=== PATIENT | male | born 1955 | race Caucasian/White ===

== ENCOUNTER 2016-11-29 11:33 | Day surgery (SDC) | payer OTHER ==
[~2016-11-29] VITALS: Ht 180.3 cm; Wt 152.6 kg
--- NOTE | 2016-11-29 06:55 | PCM.HPANE ---
Patient Data Surgeon Admitting Provider: Attending Provider:Du Nation MD Primary Care Physician:Sharmin Quinn PA-C Other Provider:Omaira Richmond Anesthesia Reason for Visit Right Neck Mass Ht/WT & BMI Body Mass Index Allergies Coded Allergies: No Known Allergies (Verified , 06/19/07) Past Anesthesia History Anesthesia History: Denies:: Abnormal Airway, Anesthesia Reactions, Difficult Intubation, Fam Anesthesia Reaction Diabetes History Hx Diabetes?: Yes (last Hgb A1C 5.4) Glycemic Control: Oral Medication MRSA MRSA: No Medications Hypertension Medication: Yes Home Meds Incl Beta Triston: Yes Reported Medications Albuterol HFA (Proair HFA)8.5 Gm Hfa.aer.ad2 Puffs INHALATION prn #8 11/29/16 Gabapentin 300 Mg Qfdsacv480 Mg PO BID Ref 0 04/14/16 [lipozine] No Conflict Check15 Mg PO DAILY 01/15/16 Tamsulosin (Flomax)0.4 Mg Capsule0.4 Mg PO DAILY Ref 0 01/15/16 Pramipexole Dihydrochloride (Mirapex)1 Mg Tablet2 Mg PO HS 01/15/16 Potassium Chloride 10 Meq Capsule.er10 Meq PO DIRECTED 30 Days Ref 0 take one capsule three times a week with FOOD 01/15/16 Multivitamin (Multivitamins)1 Each Capsule1 Each PO DAILY 01/15/16 Metoprolol Tartrate 100 Mg Ncikif638 Mg PO BID 30 Days Ref 0 01/15/16 Loratadine (Claritin)10 Mg Usmdbwr83 Mg PO DAILY Ref 0 01/15/16 Lisinopril 5 Mg Tablet5 Mg PO BID #60 TABLET Ref 0 01/15/16 Levothyroxine 75 Mcg Ezxjot35 Mcg PO DAILY Ref 0 01/15/16 Hydrocodone-Acetaminophen 5-325 mg 1 Each Tablet1 Tablet PO Q4H PRN For Pain Ref 0 01/15/16 Furosemide 40 Mg Ypyhci72 Mg PO DAILY 01/15/16 Ferrous Sulfate 325 Mg Npagru657 Mg PO DAILY 30 Days Ref 0 01/15/16 Duloxetine 30 Mg Capsule.dr30 Mg PO DAILY Ref 0 01/15/16 [diclofenac sodium] No Conflict Check50 Mg PO BID 01/15/16 Cyanocobalamin (Vitamin B-12) (Vitamin B-12)1,000 Mcg Tablet1,000 Mcg PO DAILY 01/15/16 Cholecalciferol (Vitamin D3) (Vitamin D3)5,000 Unit Tablet5,000 Unit PO DAILY 01/15/16 Amlodipine 10 Mg Ijyxtg56 Mg PO BID Ref 0 01/15/16 Alpha Lipoic Acid 200 Mg Eljdgle801 Mg PO BID 01/15/16 Metformin ER 500 Mg Pslmfn944 Mg PO BID DM Ref 0 01/14/16 Discontinued Reported Medications Fexofenadine ODT ([facility] Allergy)30 Mg Fynegu74 Mg PO DAILY 01/15/16 History HEENT History: Positive for:: Hearing Problem (no aides) Denies:: Abnormal Airway Cataracts Difficult Intubation Dysphagia Glaucoma Sinus Problem TMJ Denture Type: Full- Upper Full- Lower Hx of Heart Problems?: No Cardiovascular History: Positive for:: Hypertension Denies:: Cardiac Surgery Valvular Heart Disease Hx of Respiratory Problem?: Yes Respiratory History: Positive for:: Pneumonia (hx of pneumonias twice- last episode aug 2016) Use of Inhalers / NEBS (prescribed during pneumonia/ wheezing + SOB) Denies:: Asthma COPD Emphysema Oxygen Administration Tuberculosis Use of C-PAP Machine Hx Neurologic Problems?: No Neurological History: Denies:: Alzheimer's Disease CVA Dementia Dizziness Headaches Multiple Sclerosis Parkinson's Disease Seizures TIA Hx of GI Problems?: No Gastrointestinal History: Denies:: Cirrhosis Gall Bladder Disease Gastroesphageal Reflux Gastrointestinal Bleeding Heartburn Hepatitis Hiatal Hernia Liver Disease Rectal Bleeding Hx of Problems?: Yes Genitourinary History: Positive for:: Kidney Stones (hx of stones since 1993- passed spontaneously, and surgery) Denies:: Urinary Tract Infection Male Hx: Denies:: Prostate Problems Scrotal Mass Testicular Surgery Skin History: Denies:: History Skin Disorders? Pressure Ulcers Hx Musculoskeletal Problems?: Yes Musculoskeletal History: Positive for:: Musculoskeletal Trauma (charcots foot right, left hip bone on bone) Osteoarthritis Denies:: Back Injury Fibromyalgia Joint Replacement Myasthenia Gravis Hx of Psycho/Social Problems?: No Psycho Social History: Denies:: Anxiety Hx Depression Hx Surgeries?: Yes (neck dissection) Hx Any Other Health Problems?: Yes Other History: Positive for:: Cancer (hx of rmelanoma right ear) Thyroid Disease History Blood Transfusions: Positive for:: Accept Blood Products? Denies:: Blood Transfusions Hx Diabetes: Yes (last Hgb A1C 5.4) Hx Alcohol Use: NoHx Substance Use: Yes (marijuana 3-4 x week)Have You Smoked inLast 12 mo: No Stop/Bang Risk Assessment Category Category 1A: Patient has history of documented sleep apnea, and HAS NOT received any narcotic, sedative or anesthesia administration during this stay. Category 1B: Patient has history of documented sleep apnea, and HAS received any narcotic , sedative or anesthesia administration during this stay Category 2: Patient has SUSPECTED Obstructive Sleep Apnea, and HAS received any narcotic , sedative or anesthesia administration during this stay. Category 3: Patient has SUSPECTED Obstructive Sleep Apnea and HAS NOT received narcotic, sedative or anesthesia administration during this stay. Category 4: Outpatient in Procedural Areas with known sleep apnea or who screen positive for High Risk via the STOP/BANG questionnaire. Exam Exam General Appearance: Alert, Oriented X3, Cooperative HEENT/AIRWAY: MP 2, Neck Movement (Thick , da silva, 30% expected ROM) Lungs: Clear to Auscultation Heart: Exam Unremarkable Plan Impression Patient chart reviewed, patient interviewed and anesthestic plan with risks, benefits, and alternatives discussed, and informed consent obtained. ASA Physical Status: ASA3 Severe Disease Anesthetic Plan: MAC Bene/Risks/Altern/Consents: Yes HP Complete Prior to Induction: Yes Gomez Pace MD Nov 29, 2016 06:55
[~2016-11-29 11:33] MED LIST: ALPH200C3 PO; AMLO10TA3 PO; CHOL500011 PO; CYAN10008 PO; DULO30CA50 PO; FERR-83 PO; FEXO30TA19 PO; FURO40TA4 PO; GABA-502 PO; HYDR-4003 PO; LEVO75TA4 PO; LISI-571 PO; LORA10CA PO; METF500T7 PO; METO100T3 PO; MULT1CAP33 PO; POTA10CA42 PO; PRAM1TAB3 PO; TAMS0.4C98 PO; [UNRECOGNIZED DRUG - OTHER] PO; diclofenac sodium PO
[2016-11-29] MEDS ORDERED: Ondansetron 2 mg/mL 2 mL Inj ONE (11:34)
[2016-11-29] MEDS ORDERED: Propofol 10,000 mCg/mL 20 mL Inj ONE (11:34)
[2016-11-29] MEDS ORDERED: fentaNYL-PF 50 mCg/mL 2 mL Inj ONE (11:34)
[2016-11-29] MEDS: Lactated Ringer's 1,000 ML IV SCH ×2 (11:39→14:00)
[2016-11-29 12:16] VITALS: BP 137/92; PULSE 58; RESP 18; O2SAT 94
[2016-11-29] MEDS ORDERED: ALBU8.5H2 INHALATION (12:46)
[2016-11-29] MEDS ORDERED: Lactated Ringer's 500 ML IV PRN (14:56)
[2016-11-29] MEDS ORDERED: Lactated Ringer's 1,000 ML IV SCH (14:56)
[2016-11-29] MEDS ORDERED: Ondansetron 2 mg/mL 2 mL Inj IVPUSH PRN (15:00)
[2016-11-29] MEDS ORDERED: Atropine 0.4 mg/mL Inj IVPUSH PRN (15:00)
[2016-11-29] MEDS ORDERED: Dexamethasone 4 mg/mL Inj IVPUSH PRN (15:00)
[2016-11-29] MEDS ORDERED: HYDROmorphone 1 mg/mL Inj IVPUSH PRN (15:00)
[2016-11-29] MEDS ORDERED: EPHEDrine Sulfate 50 mg/mL Inj IVPUSH PRN (15:00)
[2016-11-29] MEDS ORDERED: Phenylephrine 10,000 mCg/mL Inj IVPUSH PRN (15:00)
[2016-11-29] MEDS ORDERED: hydrALAZINE 20 mg/mL Inj IVPUSH PRN (15:00)
[2016-11-29] MEDS ORDERED: Labetalol 5 mg/mL 4 mL Inj IV PRN (15:00)
[2016-11-29] MEDS ORDERED: fentaNYL-PF 50 mCg/mL 2 mL Inj IVPUSH PRN (15:00)
[2016-11-29] MEDS ORDERED: Bupivacaine-MPF 0.5% W/EPI 30 mL Inj INFILTRATE ONE (15:15)
[2016-11-29 15:39] VITALS: BP 148/92; PULSE 60; RESP 16; O2SAT 90
--- NOTE | 2016-11-29 15:40 | PCM.ANEP1 ---
Post Anesthesia Phase 1 PACU Phase 1 Assessment Vital Signs Vital Signs Date Time Temp Pulse Resp B/P Pulse Ox O2 Delivery O2 Flow Rate FiO2 11/29/16 12:16 CPAP/BIPAP 11/29/16 12:16 36.6 58 18 137/92 94 Room Air Anesthetic Administered: GA Level of Alertness: Awake, talking CARDONA's with Equal Strength: Yes Pain: No Nausea or Vomiting: No Oxygen Delivery: Room Air Lungs: Normal Air Movement Gomez Pace MD Nov 29, 2016 15:39
[2016-11-29 15:45] VITALS: BP 124/73; PULSE 59; RESP 16; O2SAT 91
--- NOTE | 2016-11-29 16:32 | DRSVH ---
PROCEDURE: CT NECK SOFT TISSUES WITH CONTRAST ([id number]) INDICATIONS: RIGHT NECK MASS, LOCALIZE FOR SURGERY TECHNIQUE: After the administration of intravenous contrast, 3.0 mm axial sections acquired from the sella to th e aortic arch. Additional oblique axial 3.0 mm sections acquired through the pharynx. 3 mm thick co srikanth reformats were generated. For radiation dose reduction, the following was used: automated exp osure control. COMPARISON: CT neck 10/14/2016 FINDINGS: Image quality: Excellent. Limited study with noncontrast imaging of the soft tissues of the neck are identifing the soft tissue nodule in the right infra-auricular neck, posterior to the right sternocleidomastoid muscle identifi ed on previous study. With placement of a grid over the region, location of the suspicious nodule wa s identified with a skin marker through the grid. Repeat imaging with a BB marker in place at the ski n marker again identifies the subadjacent suspicious finding. IMPRESSION: Presurgical skin marker placement over the residual suspicious nodule in the right lower neck. Dictated by: Emmanuel Dodson M.D. on 11/29/2016 at 16:23 Approved by: Emmanuel Dodson M.D. on 11/29/2016 at 16:30
[2016-11-29 16:45] VITALS: O2SAT 90
[2016-11-29] MEDS ORDERED: HYDROcodone-APAP 5-325 mg Tablet PO PRN (16:50)
--- NOTE | 2016-11-30 00:54 | OP ---
[address] [address] OPERATIVE REPORT PATIENT: MARTA HADLEY : 1955 MR#: [id number] ADMIT: 11/29/2016 JOB ID: [id number] DATE OF SURGERY: 11/29/2016 PREOPERATIVE DIAGNOSIS(ES): 1. History of T4b malignant melanoma, right neck. 2. Right neck mass. POSTOPERATIVE DIAGNOSIS(ES): 1. History of T4b malignant melanoma, right neck. 2. Right neck mass. PROCEDURE: Excision of right neck mass. SURGEON: Du Nation MD OYSTER WORKER: Vladislav Tucker PA-C. INDICATION: A 61-year-old man who has had a history of a T4b malignant melanoma excised with a sentinel node biopsy, located behind his right ear. He then underwent a right neck dissection at the [facility], with 32 nodes excised, all negative. He received some interferon, but had to stop it because of side effects. A recent CT scan showed a soft tissue density in the subcutaneous tissue of his right neck. Under ultrasound, it could not be identified. I was asked to excise the tissue, but I could not palpate it, and so it was elected to have it localized with the CT scanner. FINDINGS: The tissue just simply looked like benign fatty tissue. After excising the tissue, there is no palpable mass suggesting a metastatic malignancy. DESCRIPTION OF PROCEDURE: At the beginning and end of the operation, the SCOAP checklist was completed. In the operating room, he was placed in the supine position with his neck extended to the left. Using ChloraPrep, he was prepped and draped in the usual fashion. The marking placed at the CT scanner was there and intact. An incision was designed following skin lines right over the froylan. I injected 0.5% bupivacaine with epinephrine and 1% lidocaine with epinephrine. An incision was made and dissection was carried down into subcutaneous tissue. A dealer compliance representative sample was removed and, as stated above, there was no other palpable mass. Hemostasis was completed with cautery. There was no evidence of nerve injury, as the patient could shrug his shoulder. The wound was closed with subcuticular 4-0 Vicryl and Dermabond. Estimated blood loss less than 10 cc. No apparent complications. The final sponge, needle, and instrument counts were announced as correct, and he was returned to the recovery room in stable condition.
--- NOTE | 2016-11-30 07:25 | PCM.ANEP2 ---
Post Anesthesia Evaluation ASA/CMS Post Anesthesia VS in Patient's Normal Range?: Yes Resp Stable; Airway Patent?: Yes CV Function & Hydration Stable: Yes Mental Status Recovered?: Yes Pain control Satisfactory?: Yes N/V Control Satisfactory?: Yes Gomez Pace MD Nov 30, 2016 07:25
[2017-01-18] MEDS ORDERED: OMEP20TA24 PO (15:29)
[2017-01-18] MEDS ORDERED: PRAV20TA2 PO (15:29)
[2017-01-18] MEDS ORDERED: VITA200C61 PO (15:29)
== END 2016-11-29 23:59 | disposition home or self-care (01) ==
LOC: SAS 11:33
PROVIDERS: ATTEND Surgery
DX: D36.11 Benign neoplasm of peripheral nerves and autonomic nervous system of face, head, and neck (principal); I10 Essential (primary) hypertension; E11.9 Type 2 diabetes mellitus without complications; Z79.899 Other long term (current) drug therapy; Z87.891 Personal history of nicotine dependence
CPT/HCPCS: 21550; 70491; J2250; J2405; J3010; J7120; Q9967

== ENCOUNTER 2017-01-20 07:01 | Day surgery (SDC) | payer OTHER ==
[~2017-01-20] VITALS: Ht 180.3 cm; Wt 154.2 kg
[2017-01-20] VITALS (7 sets, daily range): BP systolic 140–170; BP diastolic 81–95; PULSE 64–68; RESP 12–22; O2SAT 92–99
[~2017-01-20 07:01] MED LIST changes: +ALBU8.5H2 INHALATION; -ALPH200C3 PO; +CeFAZolin Inj 3 GM in IV Premix 1 EACH IV ONE; -FERR-83 PO; -FEXO30TA19 PO; -FURO40TA4 PO; -HYDR-4003 PO; -LORA10CA PO; +OMEP20TA24 PO; +PRAV20TA2 PO; +VITA200C61 PO; -[UNRECOGNIZED DRUG - OTHER] PO; -diclofenac sodium PO
[2017-01-20] MEDS ORDERED: Propofol 10,000 mCg/mL 20 mL Inj ONE (07:02)
[2017-01-20] MEDS ORDERED: Phenylephrine/NS 100 mCg/mL 10 mL Syringe IVPUSH ONE (07:02)
[2017-01-20] MEDS ORDERED: MetoCLOpramide 5 mg/mL 2 mL Inj ONE (07:02)
[2017-01-20] MEDS ORDERED: Rocuronium 10 mg/mL 5 mL Inj ONE (07:02)
[2017-01-20] MEDS ORDERED: Lactated Ringer's 1,000 ML IV ONE ×2 (07:05→14:18)
--- NOTE | 2017-01-20 09:14 | PCM.HPANE ---
Patient Data Date of Service: Jan 20, 2017 Surgeon Admitting Provider: Attending Provider:Darrell Nielson DPM Primary Care Physician:Sharmin Quinn PA-C Other Provider:Omaira Richmond Anesthesia Reason for Visit Charcot Right Foot Due To Diabetes Mellitus Ht/WT & BMI Height (Feet): 5 Height (Inches): 11.00 Weight (Kilograms): 154.221 Body Mass Index 47.00 Allergies Coded Allergies: No Known Allergies (Verified , 01/18/17) Past Anesthesia History Anesthesia History: Denies:: Abnormal Airway, Anesthesia Reactions, Difficult Intubation, Fam Anesthesia Reaction, Fam Malignant Hypertherm, Malignant Hyperthermia Diabetes History Hx Diabetes?: Yes Type of Diabetes: Type II Glycemic Control: Oral Medication Current Bedside Blood Glucose: 115 MRSA MRSA: No Medications Hypertension Medication: Yes (AMLODIPINE,LISINOPRIL,LASIX) Home Meds Incl Beta Triston: Yes Date Beta Triston Taken: Jan 19, 2017 Time Beta Triston Taken: 2229 Reported Medications Pravastatin 20 Mg Dqrbbh69 Mg PO DAILY Ref 0 01/18/17 Omeprazole Magnesium (Prilosec Otc)20 Mg Tablet.dr20 Mg PO DAILY #1 PKG Ref 0 01/18/17 Vitamin E (Dl,Tocopheryl Acet) (Vitamin E)200 Unit Tfhciqe762 Unit PO DAILY 01/18/17 Albuterol HFA (Proair HFA)8.5 Gm Hfa.aer.ad2 Puffs INHALATION prn #8 11/29/16 Gabapentin 300 Mg Nsgoosp885 Mg PO BID Ref 0 04/14/16 Tamsulosin (Flomax)0.4 Mg Capsule0.4 Mg PO DAILY Ref 0 01/15/16 Pramipexole Dihydrochloride (Mirapex)1 Mg Tablet0.25 Mg PO HS 01/15/16 Potassium Chloride 10 Meq Capsule.er20 Meq PO DAILY 30 Days Ref 0 01/15/16 Multivitamin (Multivitamins)1 Each Capsule1 Each PO DAILY 01/15/16 Metoprolol Tartrate 100 Mg Regqfh047 Mg PO BID 30 Days Ref 0 01/15/16 Lisinopril 5 Mg Wyabtz43 Mg PO BID #60 TABLET Ref 0 01/15/16 Levothyroxine 75 Mcg Imufpf80 Mcg PO DAILY Ref 0 01/15/16 Duloxetine 30 Mg Capsule.dr30 Mg PO BID Ref 0 01/15/16 Cyanocobalamin (Vitamin B-12) (Vitamin B-12)1,000 Mcg Tablet1,000 Mcg PO DAILY 01/15/16 Cholecalciferol (Vitamin D3) (Vitamin D3)5,000 Unit Tablet5,000 Unit PO DAILY 01/15/16 Amlodipine 10 Mg Pfeluj19 Mg PO DAILY Ref 0 01/15/16 Metformin ER 500 Mg Imijka523 Mg PO BID DM Ref 0 01/14/16 Discontinued Reported Medications [lipozine] No Conflict Check15 Mg PO DAILY 01/15/16 Loratadine (Claritin)10 Mg Gnudawc31 Mg PO DAILY Ref 0 01/15/16 Hydrocodone-Acetaminophen 5-325 mg 1 Each Tablet1 Tablet PO Q4H PRN For Pain Ref 0 01/15/16 Furosemide 40 Mg Awraju39 Mg PO DAILY 01/15/16 Ferrous Sulfate 325 Mg Cixtgf640 Mg PO DAILY 30 Days Ref 0 01/15/16 [diclofenac sodium] No Conflict Check50 Mg PO BID 01/15/16 Alpha Lipoic Acid 200 Mg Ewtnekl939 Mg PO BID 01/15/16 History History of ENT Problems?: Yes HEENT History: Positive for:: Hearing Problem Denies:: Abnormal Airway Cataracts Difficult Intubation Dysphagia Sinus Problem TMJ Denture Type: Full- Upper Full- Lower Hx of Heart Problems?: Yes Cardiovascular History: Positive for:: Edema (RT FOOT) Hypertension (HYPERLIPIDEMIA) Denies:: Cardiac Surgery Chest Pain Heart Murmur (ECHO EF 65%) Valvular Heart Disease Other Cardiac History: RECENT DX OF POLYCYTHEMIA VERA; NO sob Hx of Respiratory Problem?: Yes Respiratory History: Positive for:: Dyspnea (BENSON) Pneumonia (hx of pneumonias twice- last episode jul/aug 2016) Denies:: Asthma COPD Emphysema Oxygen Administration Tuberculosis Use of C-PAP Machine Other Resp Pertinent History: SHERRY non-compliant with CPAP, sleeps in recliner Hx Neurologic Problems?: No Neurological History: Positive for:: Peripheral Neuropathy Denies:: Alzheimer's Disease CVA Dementia Dizziness Headaches Multiple Sclerosis Parkinson's Disease Seizures TIA Other Neurological Pertinent: diabetic neuropathy but can feel pain in RLE when flexing foot Hx of GI Problems?: No Gastrointestinal History: Positive for:: Gastroesphageal Reflux Denies:: Cirrhosis Gastrointestinal Bleeding Heartburn Hepatitis Hiatal Hernia Rectal Bleeding Hx of Problems?: Yes Genitourinary History: Positive for:: Kidney Stones (hx of stones since 1993- passed spontaneously & S/P EXTRACTION) Denies:: Urinary Tract Infection Male Hx: Denies:: Prostate Problems Scrotal Mass Testicular Surgery Skin History: Positive for:: Pressure Ulcers (HX ULCERATIONS RT FOOT) Denies:: History Skin Disorders? Hx Musculoskeletal Problems?: Yes Musculoskeletal History: Positive for:: Osteoarthritis (LT HIP) Denies:: Back Injury Joint Replacement Hx of Psycho/Social Problems?: No Psycho Social History: Denies:: Anxiety Hx Depression Hx Surgeries?: Yes (EXC RT EAR LESION/POST NECK DISSECTION,KIDNEY STONE EXTRACTION) Hx Any Other Health Problems?: Yes Other History: Positive for:: Cancer (MELANOMA RT EAR S/P EXC LASION & POST. NECK DISSECTION) Thyroid Disease Denies:: Endocrine Disease Hospitalization History Blood Transfusions: Denies:: Blood Transfusions Hx Diabetes: YesBedside Blood Glucose: 115 Hx Alcohol Use: NoHx Substance Use: Yes (marijuana 3-4 x week) Smoking Status: Former Smoker Have You Smoked inLast 12 mo: No Stop/Bang Treated for Sleep Apnea?: Yes Do You Have a CPAP Machine?: No S-Snoring: Do You Snore Loudly: No T-Tired: feel tired, fatigued: Yes O-Obsered: Observed not breath: No P-Blood Pressure: treated: Yes B- Body Mass Index > 35 kg/m2: Yes A- Age over 50: Yes N- Neck Large Circumference: Yes G- Gender Male: Yes SHERRY Total Score: 6 SHERRY Risk Assessment: High Risk, =/>3 Yes SHERRY Category 1: Yes Risk Assessment Category Category 1A: Patient has history of documented sleep apnea, and HAS NOT received any narcotic, sedative or anesthesia administration during this stay. Category 1B: Patient has history of documented sleep apnea, and HAS received any narcotic , sedative or anesthesia administration during this stay Category 2: Patient has SUSPECTED Obstructive Sleep Apnea, and HAS received any narcotic , sedative or anesthesia administration during this stay. Category 3: Patient has SUSPECTED Obstructive Sleep Apnea and HAS NOT received narcotic, sedative or anesthesia administration during this stay. Category 4: Outpatient in Procedural Areas with known sleep apnea or who screen positive for High Risk via the STOP/BANG questionnaire. Exam Exam Vital Signs Vital Signs Date Time Temp Pulse Resp B/P Pulse Ox O2 Delivery O2 Flow Rate FiO2 01/20/17 07:38 CPAP/BIPAP 01/20/17 07:38 36.5 67 18 170/94 95 Room Air General Appearance: Alert, Oriented X3, Cooperative, No Acute Distress HEENT/AIRWAY: MP 3, Neck Movement (FROM), Mouth Opening (3), Other (TMD<3) Lungs: Normal Air Movement, Diminished, Wheezes Heart: Exam Unremarkable, Regular Rate/Rhythm, Normal S1, Normal S2 Additional Information Poor hygiene, malodorous Meds/Labs/Diagnostics Admission Meds Current Medications Lactated Ringer's (Lr) 1,000 ml @ ud STK-MED ONCE IV Last administered on t 07:05; Start 01/20/17 at 07:05; Stop 01/20/17 at 07:15; Status DC Bedside Blood Glucose: 115 Diagnositcs Stress Test 11/02/16 non-ischemic; TTE mild LV dilation nl sys func, mild dilated aortic root/aorta ; 10/19/16 - NSR, no gross ischemia/infarct Plan Impression Patient chart reviewed, patient interviewed and anesthestic plan with risks, benefits, and alternatives discussed, and informed consent obtained. NPO Status: 1030PM ASA Physical Status: ASA3 Severe Disease Anesthetic Plan: GA Bene/Risks/Altern/Consents: Yes HP Complete Prior to Induction: Yes Other Right popliteal nerve block request by surgeon for post-op pain management. Kody Valverde MD Jan 20, 2017 09:14
[2017-01-20] MEDS ORDERED: Lactated Ringer's 500 ML IV PRN (09:42)
[2017-01-20] MEDS ORDERED: Lactated Ringer's 1,000 ML IV SCH (09:42)
[2017-01-20] MEDS ORDERED: Ondansetron 2 mg/mL 2 mL Inj IVPUSH PRN (09:45)
[2017-01-20] MEDS ORDERED: HYDROmorphone 1 mg/mL Inj IVPUSH PRN (09:45)
[2017-01-20] MEDS ORDERED: Phenylephrine 10,000 mCg/mL Inj IVPUSH PRN (09:45)
[2017-01-20] MEDS ORDERED: Dexamethasone 4 mg/mL Inj IVPUSH PRN (09:45)
[2017-01-20] MEDS ORDERED: EPHEDrine Sulfate 50 mg/mL Inj IVPUSH PRN (09:45)
[2017-01-20] MEDS ORDERED: fentaNYL-PF 50 mCg/mL 2 mL Inj IVPUSH PRN (09:45)
[2017-01-20] MEDS ORDERED: MetoCLOpramide 5 mg/mL 2 mL Inj IVPUSH PRN (09:45)
[2017-01-20] MEDS ORDERED: Lidocaine 2%-Epi 1:100,000 20 mL Inj INFILTRATE ONE (10:48)
[2017-01-20] MEDS ORDERED: Bupivacaine 0.5%/EPI 50 mL Inj INFILTRATE ONE (11:07)
[2017-01-20] MEDS ORDERED: oxyCODONE-Acetamin 5-325 mg Tablet PO PRN (14:50)
--- NOTE | 2017-01-20 14:58 | PCM.ANEP2 ---
Post Anesthesia Evaluation ASA/CMS Post Anesthesia VS in Patient's Normal Range?: Yes Resp Stable; Airway Patent?: Yes CV Function & Hydration Stable: Yes Mental Status Recovered?: Yes Pain control Satisfactory?: Yes N/V Control Satisfactory?: Yes Ricardo Koenig MD Jan 20, 2017 14:58
--- NOTE | 2017-01-20 14:58 | PCM.ANEP1 ---
Post Anesthesia Phase 1 PACU Phase 1 Assessment Date of Service: Jan 20, 2017 Vital Signs Vital Signs Date Time Temp Pulse Resp B/P Pulse Ox O2 Delivery O2 Flow Rate FiO2 01/20/17 14:55 66 17 150/95 98 Simple Mask 8 01/20/17 14:49 37.5 68 22 158/84 99 Simple Mask 8 01/20/17 07:38 CPAP/BIPAP 01/20/17 07:38 36.5 67 18 170/94 95 Room Air Anesthetic Administered: GA Level of Alertness: Awake, talking Pain: No Nausea or Vomiting: No Oxygen Delivery: Room Air Ricardo Koenig MD Jan 20, 2017 14:58
--- NOTE | 2017-01-20 16:20 | PCM.ANEP2 ---
Post Anesthesia Evaluation ASA/CMS Post Anesthesia VS in Patient's Normal Range?: Yes Resp Stable; Airway Patent?: Yes CV Function & Hydration Stable: Yes Mental Status Recovered?: Yes Pain control Satisfactory?: No (c/o R eye pain, closed, tearing) N/V Control Satisfactory?: Yes Additional Comments Pt states that he has R eye pain, holds eye closed and is tearing. States this feels like the time he had a corneal abrasion. "Feels like there's an eyelash stuck in there." Eye exam difficult as pt fights to keep it closed. Minimal exam revealed no foreign bodies. Pt instructed to see an opthalmologist if pain worsens or does not lessen within 3 days and to contact the Anesthesia Department for Dr. Koenig. Pt was instructed to keep the eye clean and not rub it. He was given sterile gauze 2x2's and sterile saline to clean around the commissures and eyelids if necessary. Pt is in favor of this plan. Dr. Koenig was notified by telephone and is in agreement with plan. Significant emphasis was reinforced with the patient to keep his eye clean and not irritate or rub it or otherwise leave it susceptible to infection. Kody Valverde MD Jan 20, 2017 16:20
--- NOTE | 2017-01-31 10:35 | PCM.PODPO ---
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 All preoperative comorbidities and allergies were identified and thoroughly discussed. The patient was transported into the operating room and placed on the operating room table in the normal supine position. The patient received a popliteal block by the anesthesia service. The patient was placed under general anesthesia by the anesthesia service. Attention was first paid to the lateral aspect of the right foot. A 5 cm curvilinear incision was made overlying the lateral body of the calcaneus and calcaneal cuboid joint. Once that initially her skin to subcutaneous neurovascular structures were identified and retracted out of the surgical field. A Metzenbaum scissor was utilized to perform blunt dissection through subcutaneous tissue to identify the peroneal tendon sheath. The peroneal tendon sheath was mobilized and retracted plantarly. Blunt dissection was continued with a maximum scissor to identify the extensor digitorum and brevis muscle belly. A #15 blade was utilized to reflect the extensor digitorum and brevis muscle belly distal medially taking care to ensure no disruption of the neurovascular supply to the extensor digitorum muscle. The Alcantara periosteal elevator was utilized to perform periosteal dissection exposing the calcaneocuboid joint and posterior facet of the subtalar joint. Inspection of the posterior facet of the subtalar joint revealed severe articular degeneration with a near [id number] appearance. The calcaneocuboid joint had a similar appearance. A large curet was then utilized to resect all remaining articular cartilage from the posterior facet of the subtalar joint until subcutaneous bone was exposed on both the talar and calcaneal surface with healthy bleeding bone. Following resection of the posterior facet of the subtalar joint attention was then paid to the calcaneocuboid joint and a large curet was also utilized to remove all remaining articular cartilage until healthy bleeding cancellous bone was exposed. A #2.0 mm drill bit was then utilized to fenestrate both the talar and calcaneal surface of the posterior facet as well as the calcaneocuboid joint surfaces. At this time these wounds were packed with saline soaked gauze. Attention was then paid to the medial aspect of the right foot a 4-1/2 cm incision was made overlying the talonavicular joint in a dorsal medial approach. Once that initially her skin to subcutaneous neurovascular structures including the medial venous structures were identified and retracted out of the surgical field. Blunt dissection was carried down through deep capsule utilizing a Metzenbaum scissor. The tibialis anterior tendon was identified at the distal aspect of the navicular and retracted distally. A cannulated distractor was then utilized to distract the talonavicular joint in order to gain access to the lateral talar and navicular surface. A large curette was then utilized to remove all articular cartilage until healthy bleeding cancellous bone was exposed. A curved osteotome was then utilized to further expose bleeding cancellous bone and to ensure all articular cartilage had been removed from the lateral aspect of the talonavicular joint. A #2.0 mm drill bit was then utilized to fenestrate the articular surfaces of both the talus and navicular. A cannulated distractor was then released. Attention was again paid to the lateral aspect of the foot. Intraoperative C- arm x-ray was utilized to help position the subtalar joint in neutral to slight valgus positioning and a 2.0 mm guidepin was then inserted across the posterior facet. Multiple intraoperative C-arm x-ray views were utilized to ensure proper placement of the wire in order to ensure proper screw placement for fixation. A 5.5 mm drill was then utilized to drill a child and adolescent therapist hole across the posterior facet into the talus and a 7.0 mm screw was then inserted in the normal surgical technique. A second 2.0 mm guidepin was then inserted superiorly and intraoperative C-arm x-ray was again utilized to ensure proper screw placement. A second 7.0 mm screw was then inserted across the posterior facet for additional internal fixation. Attention was then paid to the talonavicular joint and intraoperative C-arm x-ray was utilized to position the foot in the transverse plane. 2 #4.0 mm screws were then inserted in the normal surgical fashion utilizing intraoperative C-arm x-ray to ensure proper screw placement. Compression of the talonavicular joint was noted through direct visualization following internal fixation placement. Attention was then paid to the calcaneocuboid joint and a single 4.0 mm screw was inserted from proximal superior to distal inferior across the calcaneocuboid joint with adequate compression noted upon screw insertion. Prior to placement of the screw a small amount of demineralized bone matrix was introduced into the calcaneocuboid joint. All wounds were then Seated flush with large amounts of normal saline. Deep closure of all wounds was performed utilizing #2.0 and number 3. 0 Vicryl in a layered fashion taking care to repair the extensor digitorum brevis muscle belly through the lateral incision into anatomic position ensuring no damage to the peroneal tendon sheath. Skin closure of all incisions was performed utilizing number 3. 0 Prolene. The patient was then placed into a dressing consisting of Adaptic sterile 4 x 4 gauze Kerlix a mild Gonzalez compression dressing with a fiberglass cast overlay. No complications occurred during this procedure. This patient was then awoken by anesthesia and transported to the operating room into the postanesthesia care unit Grafts, Implants: Grafts-See Implant Record, Implants-See Implant Record Complications There were no periprocedural complications identified. Condition Stable Anesthetic Administered: GA Catheters: None Output, Estimated Blood Loss: 100 Blood Admin during surgery: No Surgical Cast or Splint: Short Leg Cast Surgical Specimen Removed: No Specimen sent to Pathology: No Post Operative Plan Ice and elevate right foot Nonweightbearing right foot Follow-up in 1 week Discharged to home when stable Pain medications as needed for severe pain only Advance diet as tolerated Contact office with any questions or concerns regarding care Darrell Nielson DPM Jan 31, 2017 10:35
== END 2017-01-20 23:59 | disposition home or self-care (01) ==
LOC: SAS 07:01
PROVIDERS: ATTEND Podiatrist Foot & Ankle Surgery
PROC: 0SGH0KZ Fusion of Right Tarsal Joint with Nonautologous Tissue Substitute, Open Approach (ICD-10-PCS; 2017-01-20)
PROC: 0SGH0KZ Fusion of Right Tarsal Joint with Nonautologous Tissue Substitute, Open Approach (ICD-10-PCS; 2017-01-20)
PROC: 0SGH0KZ Fusion of Right Tarsal Joint with Nonautologous Tissue Substitute, Open Approach (ICD-10-PCS; principal; 2017-01-20 09:45)
DX: E11.610 Type 2 diabetes mellitus with diabetic neuropathic arthropathy (principal); M21.41 Flat foot [pes planus] (acquired), right foot; M19.071 Primary osteoarthritis, right ankle and foot; Z79.84 Long term (current) use of oral hypoglycemic drugs; E78.5 Hyperlipidemia, unspecified; I10 Essential (primary) hypertension; E11.40 Type 2 diabetes mellitus with diabetic neuropathy, unspecified
CPT/HCPCS: 28715; 76001; 76942; C1713; J0690; J2250; J2370; J2765; J7120